=== PATIENT | female | born 1945 | race Caucasian/White ===

== ENCOUNTER 2016-07-31 16:11 | Inpatient (IN) | payer MEDICARE, MEDICAID ==
--- NOTE | 2016-07-31 16:57 | ED ---
General Adult HPI - General Chief complaint: Arrhythmia/Palpitations Stated complaint: Afib Time Seen by Provider: 07/31/16 16:20 Source: patient, RN notes reviewed Mode of arrival: EMS Limitations: no limitations - History of Present Illness Initial comments: This is a 70-year-old female who presents to the emergency department after having gone to [facility]. Patient states she was feeling is her heart was racing at home and when she put her blood pressure cuff on it was in the 156 she decided to go to [facility]. Patient denied any chest pain or shortness of breath but she did feel her heart racing. Patient denied any lightheadedness dizziness or near syncopal episode. Patient states she was able to get up take a shower go to [facility] without any problem. Patient denies any recent fever chills or cough. Patient denies any similar symptoms in the past. Patient denies any excessive caffeine use. Patient denies any abdominal pain patient denies nausea vomiting diarrhea. Patient states when she gets [facility] they put her on a Cardizem drip and heparinized her and she states currently she feels no palpitations. - Related Data Home Medications Medication Instructions Recorded Confirmed Ascorbic Acid [Vitamin C] 1,000 mg PO DAILY 07/31/16 07/31/16 Calcium Carbonate [Calcium] 600 mg PO DAILY 07/31/16 07/31/16 Iodine 10mg 1 tab PO DAILY 07/31/16 07/31/16 L.acidoph,Sujatha, B.lactis 1 tab PO DAILY 07/31/16 07/31/16 [Probiotic] Levothyroxine Sodium [Synthroid] 1 tab PO DAILY 07/31/16 07/31/16 Magnesium 200 mg PO DAILY 07/31/16 07/31/16 [place]-3/Dha/Epa/Fish Oil [Fish Oil 1 tab PO DAILY 07/31/16 07/31/16 500 mg Softgel] Ubidecarenone [Co Q-10] 100 mg PO DAILY 07/31/16 07/31/16 Vitamin B Complex 1 cap PO DAILY 07/31/16 07/31/16 Vitamin D3 5000 1 tab PO DAILY 07/31/16 07/31/16 Allergies Allergy/AdvReac Type Severity Reaction Status Date / Time No Known Allergies Allergy Verified 07/31/16 17:58 Review of Systems ROS Statement: Those systems with pertinent positive or pertinent negative responses have been documented in the HPI. ROS Other: All systems not noted in ROS Statement are negative. Past Medical History Past Medical History: Thyroid Disorder History of Any Multi-Drug Resistant Organisms: None Reported Past Surgical History: Hysterectomy, Tubal Ligation Past Psychological History: No Psychological Hx Reported Smoking Status: Never smoker Past Alcohol Use History: None Reported Past Drug Use History: None Reported General Exam - General Exam Comments Initial Comments: GENERAL: Patient is well-developed and well-nourished. Patient is nontoxic and well- hydrated and is in mild distress. ENT: Neck is soft and supple. No significant lymphadenopathy is noted. Oropharynx is clear. Moist mucous membranes. Neck has full range of motion without eliciting any pain. EYES: The sclera were anicteric and conjunctiva were pink and moist. Extraocular movements were intact and pupils were equal round and reactive to light. Eyelids were unremarkable. PULMONARY: Unlabored respirations. Good breath sounds bilaterally. No audible rales rhonchi or wheezing was noted. CARDIOVASCULAR: Irregular rate and rhythm ABDOMEN: Soft and nontender with normal bowel sounds. No palpable organomegaly was noted. There is no palpable pulsatile mass. SKIN: Skin is clear with no lesions or rashes and otherwise unremarkable. NEUROLOGIC: Patient is alert and oriented x3. Cranial nerves II through XII are grossly intact. Motor and sensory are also intact. Normal speech, volume and content. Symmetrical smile. MUSCULOSKELETAL: Normal extremities with adequate strength and full range of motion. No lower extremity swelling or edema. No calf tenderness. LYMPHATICS: No significant lymphadenopathy is noted PSYCHIATRIC: Normal psychiatric evaluation. Normal interpersonal interactions appears functionally intact in deals appropriately with others. No signs of depression. No signs of anxiety. Limitations: no limitations Course Vital Signs 07/31/16 07/31/16 07/31/16 16:17 16:48 17:48 Temperature 98.2 F Pulse Rate 87 98 69 Respiratory 20 20 20 Rate Blood Pressure 107/65 121/66 117/67 O2 Sat by Pulse 98 98 98 Oximetry Medical Decision Making - Medical Decision Making EKG shows atrial fibrillation 75 bpm QRS is 70 QT interval 32 QTC is 426 per patient's EKG shows no ST segment elevation or depression or T-wave abdomen is normal. I repeated the cardiac enzymes and troponin were both negative. I spoke with [facility] they accepted the patient admitted the patient I wrote orders to continue the Cardizem and heparin on the floor. - Lab Data Lab Results 07/31/16 Range/Units 17:00 Total Creatine Kinase 73 (30-135) U/L CK-MB (CK-2) 0.6 (0.0-2.4) ng/mL CK-MB (CK-2) Rel Index 0.8 Troponin I <0.012 (0.000-0.034) ng/mL Critical Care Time Critical Care Time: Yes Total Critical Care Time: 35 Disposition Clinical Impression: Atrial fibrillation with rapid ventricular response Disposition: ADMITTED IP TO THIS HOSP Referrals: Dennys Barreto DO [Primary Care Provider] - 1-2 days Time of Disposition: 18:15
[2016-07-31] MEDS: HEPARIN SODIUM,PORCINE/D5W PMX 25,000 UNIT in DEXTROSE/WATER 1 500ML.BAG IV SCH (16:58)
[2016-07-31] MEDS: DILTIAZEM 125 MG in SODIUM CHLORIDE 0.9% 100 ML IV SCH (16:58)
[2016-07-31 17:42] LABS: Creatine Kinase 73 U/L (30-135)
[2016-07-31 17:55] LABS: Creatine Kinase MB 0.6 ng/mL (0.0-2.4); Troponin I <0.012 ng/mL (0.000-0.034)
[2016-07-31] MEDS ORDERED: NITROGLYCERIN SL TABS 0.4 MG TAB SUBLINGUAL PRN (18:34)
[2016-07-31 21:12] VITALS: BMI 28.0
[2016-07-31 23:54] LABS: Creatine Kinase MB 0.6 ng/mL (0.0-2.4); Troponin I 0.023 ng/mL (0.000-0.034)
[2016-08-01] MEDS: HEPARIN SODIUM,PORCINE/D5W PMX 25,000 UNIT in DEXTROSE/WATER 1 500ML.BAG IV SCH (03:32)
[2016-08-01] MEDS: LEVOTHYROXINE 100 MCG TAB PO SCH (06:30)
[2016-08-01 07:11] LABS: Cholesterol 161 mg/dL (<200); HDL Cholesterol 84 mg/dL (40-60); Triglycerides 32 mg/dL (<150)
[2016-08-01 07:17] LABS: Troponin I 0.037 ng/mL (0.000-0.034)
[2016-08-01] MEDS ORDERED: ASPIRIN 325 MG TAB PO SCH (09:00)
[2016-08-01 13:21] LABS: Basophils % (A) 1 %; CH 32.1; CHCM 32.4; Eosinophils # (A) 0.1 k/uL (0-0.7); Eosinophils % (A) 3 %; HCT 37.7 % (34.0-46.0); HDW 2.56; HGB 12.2 gm/dL (11.4-16.0); Luc % (Auto) 4; Lymphocytes # (A) 1.7 k/uL (1.0-4.8); Lymphocytes % (A) 36 %; MCH 32.3 pg (25.0-35.0); MCHC 32.4 g/dL (31.0-37.0); MCV 99.7 fL (80.0-100.0); Mean Platelet Volume 9.5; Monocytes # (A) 0.3 k/uL (0-1.0); Monocytes % (A) 7 %; Neutrophils # (A) 2.3 k/uL (1.3-7.7); Neutrophils % (A) 50 %; RBC 3.79 m/uL (3.80-5.40); RDW 13.5 % (11.5-15.5); WBC 4.7 k/uL (3.8-10.6); WBC (Perox) 4.94
[2016-08-01 13:30] LABS: Anion Gap 9 mmol/L; Blood Urea Nitrogen 14 mg/dL (7-17); Calcium 8.9 mg/dL (8.4-10.2); Carbon Dioxide 22 mmol/L (22-30); Chloride 110 mmol/L (98-107); Glucose 97 mg/dL (74-99); Non-African American GFR(MDRD) >60 (>60 ml/min/1.73 sqM); Potassium 4.1 mmol/L (3.5-5.1); Sodium 141 mmol/L (137-145)
--- NOTE | 2016-08-01 17:58 | CONS ---
DATE OF CONSULTATION: REASON FOR CONSULTATION: Cardiac evaluation and treatment. Atrial fibrillation with fast ventricular rate. 70-year-old lady with history of hypothyroidism without any history of smoking but strong family history of coronary artery disease in both parents with stents beyond age 60. Developed sudden onset of atrial fibrillation with fast ventricular rates up to 156 beats per minute, went to [facility] and then transferred here. Patient has been on the Cardizem drip converted to sinus rhythm remaining in sinus rhythm on a small dose of Cardizem 5 mg per hour. Patient denies any history of previous episodes of atrial fibrillation. No history of chest pain, no history of pressure. Patient is fairly very active for her age and planning to go to [place] on with her grand kids. Patient has one son and daughter. Patient's only past of hysterectomy, otherwise unremarkable. The patient medications prior to admission include: 1. Ascorbic acid 100 milligrams p.o. daily. 2. ( ) 600 mg p.o. daily. 3. ( ) 10 mg p.o. daily. 4. Probiotic 1 capsule daily. 5. Levothyroxine 1 tablet daily. 6. Magnesium 200 mg p.o. daily. 7. [place]-3 fatty acid ( ) mg soft gel daily. 8. C-Q10 100 mg p.o. daily. 9. Vitamin B complex 1 capsule. 10. Vitamin D3 5000 units daily. ALLERGIES: None mentioned. REVIEW OF SYSTEMS: Essentially unremarkable other than the fast heart rate. Past history remarkable for a hysterectomy and tubal ligation. Patient is nondrinker, nonsmoker. REVIEW OF SYSTEMS: HEENT: Unremarkable. RESPIRATORY SYSTEM: Denies any cough or expectoration. CARDIOVASCULAR: As above without any palpitations without any chest pain or pressure. GASTROINTESTINAL: Unremarkable. GENITOURINARY: Unremarkable. MUSCULOSKELETAL SYSTEM: Unremarkable. INTEGUMENTARY: Unremarkable. NEUROLOGIC: Unremarkable. Physical examination revealed well-developed, well-nourished 70-year-old female with a pulse rate of 55 beats per minute and regular, blood pressure 110/65 mmHg, respirations 20. Head normocephalic. HEENT unremarkable. Neck is supple. No thyroid enlargement. No bruit noted. Good carotid upstroke bilaterally. Chest is symmetrical. CARDIAC EXAMINATION: S1 and S2. Lungs are clinically clear to auscultation and percussion. ABDOMEN: Soft, no organomegaly. Active bowel sounds. EXTREMITIES: Peripheral pulses. No pedal edema. ASSISTANT HEAD CASHIER examination within normal limits. ASSESSMENT: 1. Atrial fibrillation with fast ventricular rate, converted to sinus rhythm remaining in sinus rhythm now on the rhythm strips. 2. Hypothyroidism. 3. Family history of coronary artery disease beyond age 60. RECOMMENDATIONS: May need to keep her on long-term anticoagulation with Coumadin and try to keep her in sinus rhythm by starting flecainide 50 mg p.o. b.i.d. We will discontinue the Cardizem after the first doses is administered 2 or 3 hours later. We will check for any ( ) unable to get any oral anticoagulants. Otherwise, patient will be started on Coumadin therapy and try to keep the INR in therapeutic range between 2 to 3 at least for the time being until six months to a year if she remains in regular sinus rhythm without back and forth, or recurrence of atrial fibrillation, may consider at that point whether to continue on anticoagulation. Patient based on the Chads score vascular patient would be a candidate for long-term anticoagulation. Patient also advised to have a stress test done to rule out any underlying ischemic heart disease because of the family history. Patient does want to do it at the present time, can be done as an outpatient when she comes back from [place].
[2016-08-01] MEDS: DILTIAZEM 125 MG in SODIUM CHLORIDE 0.9% 100 ML IV SCH (18:06)
[2016-08-01] MEDS: FLECAINIDE 50 MG TAB PO SCH (20:23)
[2016-08-02] MEDS: LEVOTHYROXINE 100 MCG TAB PO SCH (06:12)
[2016-08-02] MEDS: FLECAINIDE 50 MG TAB PO SCH (08:55)
[2016-08-02] MEDS ORDERED: DHA PO SCH (09:00)
[2016-08-02] MEDS ORDERED: APIXABAN 5 MG TAB PO SCH (09:00)
[2016-08-02] MEDS ORDERED: EPA PO SCH (09:00)
[2016-08-02] MEDS ORDERED: OMEGA PO SCH (09:00)
[2016-08-02] MEDS ORDERED: FISH OIL PO SCH (09:00)
--- NOTE | 2016-08-02 09:20 | HP ---
DATE OF ADMISSION: CHIEF COMPLAINT: Fluttering heart. HISTORY OF PRESENT ILLNESS: Ms. Rolon is a 70-year-old female with known history of hypothyroidism who presented originally to [facility] after she was feeling fluttering heart and was racing at home. When she checked her blood pressure cuff, her pulse was found to be 156. Otherwise, the patient denied any complaints of chest pain or short of breath. Along with that, no headache or dizziness or lightheadedness. Patient does have nausea. No vomiting. Patient presented to the hospital and was found to have atrial fibrillation with rapid ventricular rate and was transferred to [facility] for further elevation by Cardiology. Patient was started on Cardizem drip and heparin drip. Currently, patient on Cardizem drip and heart rate is well controlled. Otherwise, currently the patient is asymptomatic. The patient denied recent illnesses. No sick contacts at home. Patient denied any history of smoking. Denied any caffeine use. Denied any recent travel. REVIEW OF SYSTEMS: CONSTITUTIONAL: No fever. No chills. No weakness. RESPIRATORY: No cough or sputum production. CARDIOVASCULAR: No chest pain or short of breath. No leg swelling. Patient did have palpitations. GENITOURINARY: Negative. ENDOCRINE: Negative. PSYCHIATRIC: Negative. SKIN: Negative. MUSCULOSKELETAL: Negative. All other 14-point review of systems negative except as above. PAST MEDICAL HISTORY: Thyroid disorder, hypothyroidism. PAST SURGICAL HISTORY: Hysterectomy, tubal ligation. SOCIAL HISTORY: Patient never a smoker. Denied any alcohol use. Denied any drugs or IVDU. FAMILY HISTORY: Denied any history of blood clots. Denied any heart disease in the family. Denied any history of hypertension or diabetes mellitus. ALLERGIES: No known drug allergies. Home medications include: 1. Ascorbic acid. 2. Calcium. 3. Iodine. 4. Lactobacillus. 5. Levothyroxine. 6. Magnesium. 7. [place]-3 fatty acids. 8. Coenzyme Q. 9. Vitamin B complex. 10. Vitamin D3, 5000 units. PHYSICAL EXAMINATION: A [id number] lying in bed, comfortably, awake, alert, oriented x3. Appears to be in no apparent distress. VITALS: Blood pressure is 129/62, pulse is 51, respirations 16, temperature afebrile, pulse ox 97% on room air. HEENT: Head atraumatic, normocephalic. NECK: Supple. No JVD. CVS EXAM: S1, S2 heard. No murmurs, no gallop, no rub. LUNGS: Bilateral air entry is present. No wheezing, no crackles. Unlabored breathing. ABDOMEN: Soft, nontender. Bowel sounds are present. CERTIFIED PROCEDURAL CODER: Awake, alert, oriented x3. No focal deficit. EXTREMITIES: No edema. Pulses palpable bilaterally. PSYCHIATRY: Cooperative. LABORATORY DATA: WBC 4.7, hemoglobin 12.2, platelets 227. Sodium 141, potassium 4.1, chloride 110, bicarb 22, BUN 14, creatinine 0.80. Magnesium 2.0. Troponin 0.012, 0.012, and 0.037. LDL is 71. TSH is 2.91. EKG sinus rhythm. IMPRESSION: 1. New onset atrial fibrillation with rapid ventricular rate, rate controlled on Cardizem drip. Currently on anticoagulation with heparin IV. 2. Fluttering heart/palpitations on admission. 3. Hypothyroidism with normal TSH level. DISCUSSION AND PLAN: A 70-year-old female admitted to the hospital with racing heart and was found to have atrial fibrillation with rapid ventricular rate. Currently, the patient ( ) sinus rhythm. Currently on Cardizem drip and Cardiology has been consulted. Patient was started on flecainide to keep her maintained in sinus rhythm. Otherwise, will continue the current management, continue with telemonitoring and follow up closely. Further recommendations based on the clinical course.
--- NOTE | 2016-08-02 10:52 | ECHOF ---
Referral Reason:lv function MEASUREMENTS -------- HEIGHT: 160.0 cm WEIGHT: 71.2 kg BP: IVSd: 0.9 cm (0.6 - 1.1) LVIDd: 4.5 cm (3.9 - 5.3) LVPWd: 1.1 cm (0.6 - 1.1) IVSs: 1.4 cm LVIDs: 3.1 cm LVPWs: 1.5 cm Ao Diam: 3.2 cm (2.0 - 3.7) AV Cusp: 1.9 cm (1.5 - 2.6) LA Diam: 3.5 cm (2.7 - 3.8) MV EXCURSION: 22.213 mm (> 18.000) MV EF SLOPE: 77 mm/s (70 - 150) EPSS: 0.6 cm MV E Alen: 0.82 m/s MV DecT: 184 ms MV A Alen: 0.48 m/s MV E/A Ratio: 1.70 RAP: 5.00 mmHg RVSP: 12.37 mmHg FINDINGS -------- Sinus rhythm. This was a technically good study. The left ventricular size is normal. Left ventricular wall thickness is normal. Overall left ventricular systolic function is normal with, an EF between 55 - 60 %. The right ventricle is normal in size and function. The left atrium is normal in size. The right atrium is normal in size. The aortic valve is trileaflet, and appears structurally normal. No aortic stenosis or regurgitation. Mitral valve is thickened with myxomatous degeneration. The mitral valve leaflets are mildly thickened. [id number] mitral regurgitation is present , predominately a posteriorly directed jet. Mild tricuspid regurgitation present. The right ventricular systolic pressure, as measured by Doppler, is 12.37mmHg. There is no pulmonic regurgitation present. The aortic root size is normal. There is no pericardial effusion. CONCLUSIONS -------- 1. Sinus rhythm. 2. Mild tricuspid regurgitation present. 3. The right ventricular systolic pressure, as measured by Doppler, is 12.37mmHg. 4. There is no pulmonic regurgitation present. 5. The aortic root size is normal. 6. There is no pericardial effusion. 7. This was a technically good study. 8. Left ventricular wall thickness is normal. 9. Overall left ventricular systolic function is normal with, an EF between 55 - 60 %. 10. The left atrium is normal in size. 11. The aortic valve is trileaflet, and appears structurally normal. No aortic stenosis or regurgitation. 12. Mitral valve is thickened with myxomatous degeneration. 13. The mitral valve leaflets are mildly thickened. 14. , predominately a posteriorly directed jet. DIALYSIS TECH: Ofelia Tracy RDCS
[2016-08-02] MEDS ORDERED: CALCIUM CARBONATE 500 MG CHEWABLE PO SCH (12:00)
[2016-08-02] MEDS ORDERED: ASCORBIC ACID 500 MG TAB PO SCH (12:00)
[2016-08-02] MEDS ORDERED: MAGNESIUM OXIDE 400 MG TAB PO SCH (12:00)
[2016-08-02] MEDS ORDERED: LACTOBACILLUS ACIDOPH & BULGAR 1 EACH PACKET PO SCH (12:00)
[2016-08-02 12:33] VITALS: BP 129/62; PULSE 52; RESP 16; TEMP 97
--- NOTE | 2016-08-02 17:08 | P.DS ---
Providers Date of admission: 07/31/16 18:34 Attending physician: Derick Escalera Primary care physician: Dennys Garcia [facility] Course: 71-year-old female is admitted to the hospital with complains of heart fluttering. Patient was noted to be in atrial fibrillation with rapid ventricular rate. This appears to be new onset. Patient stated that she initially noted some fluttering with minimal exertion. Patient was seen at an outside facility and transferred to the hospital for ongoing care. Patient was started on flecainide Is currently in sinus rhythm. On day of discharge Physical exam Gen. appearance oriented 3 in no distress Neck is supple no JVD Lungs good air entry clear to auscultation no rhonchi or wheezing Heart S1-S2 heard regular rate and rhythm no murmurs appreciated Abdomen is soft nontender no organomegaly bowel sounds are intact Neurologically cranial nerves II-12 grossly intact no focal motor or sensory deficits noted Skin no abnormalities appreciated Discharge diagnoses #1 new onset atrial fibrillation with rapid ventricular rate. CH ADS VASC of at least 2 #2 hypothyroidism Plan Medications were discussed. Patient is to follow-up with the installer soft top. Restrictions were also discussed with the patient. Patient is currently in sinus rhythm at the time of discharge. Plan - Discharge Summary New Discharge Prescriptions: Apixaban [Eliquis] 5 mg PO BID #60 tab Flecainide [Tambocor] 50 mg PO Q12HR #60 tab Discharge Medication List Ascorbic Acid [Vitamin C] 1,000 mg PO DAILY 07/31/16 [History] Calcium Carbonate [Calcium] 600 mg PO DAILY 07/31/16 [History] Iodine 10mg 1 tab PO DAILY 07/31/16 [History] L.acidoph,Paracasei, B.lactis [Probiotic] 1 tab PO DAILY 07/31/16 [History] Levothyroxine Sodium [Synthroid] 1 tab PO DAILY 07/31/16 [History] Magnesium 200 mg PO DAILY 07/31/16 [History] [place]-3/Dha/Epa/Fish Oil [Fish Oil 500 mg Softgel] 1 tab PO DAILY 07/31/16 [ History] Ubidecarenone [Co Q-10] 100 mg PO DAILY 07/31/16 [History] Vitamin B Complex 1 cap PO DAILY 07/31/16 [History] Vitamin D3 5000 1 tab PO DAILY 07/31/16 [History] Apixaban [Eliquis] 5 mg PO BID #60 tab 08/02/16 [Rx] Flecainide [Tambocor] 50 mg PO Q12HR #60 tab 08/02/16 [Rx] Follow up Appointment(s)/Referral(s): Dr Breanne Cardiology [Other] - 08/17/16 11:00 am PCP, PCP [Other] - 3 Days Patient Instructions/Handouts: Atrial Fibrillation (DC) Activity/Diet/Wound Care/Special Instructions: *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
== END 2016-08-02 17:10 | disposition home or self-care (01) | DRG 310 ==
LOC: EC 16:11 → 6SEL 18:34
PROVIDERS: ADMIT Hospitalist; ATTEND Hospitalist
DX: I48.91 Unspecified atrial fibrillation (principal); E03.9 Hypothyroidism, unspecified; R11.0 Nausea; Z82.49 Family history of ischemic heart disease and other diseases of the circulatory system; Z79.899 Other long term (current) drug therapy; Z90.710 Acquired absence of both cervix and uterus; Z98.51 Tubal ligation status
CPT/HCPCS: 36415; 80048; 80061; 82550; 82553; 83735; 84443; 84484; 85025; 85730; 93005; 93306; 94760; 96365; 96366; 96367; 99291